=== PATIENT | female | born 1990 | race Caucasian/White ===

== ENCOUNTER 2023-06-05 07:48 | Outpatient (OUT) | payer BC, SELFPAY ==
--- NOTE | 2023-06-05 08:00 | NM_ITS ---
[address] [address] Patient Name: MIL BROOKS MRN: [id number] date: 1990 Sex: F Assigned Patient Location: [place] Current Patient Location: [place] Accession/Order Number: [id number] Exam Date: 06/05/2023 08:00 Report Date: 06/05/2023 14:48 At the request of: NON-STAFF PHYSICIAN Procedure: [place] gastric emptying study NUCLEAR MEDICINE GASTRIC EMPTYING SCAN HISTORY: Nausea and vomiting. COMPARISON: None. TECHNIQUE: The patient ingested a meal of egg labeled with 1.0 mCi of technetium-99 sulfur colloid and images were performed of the stomach over 4 hours. Gastric retention was calculated. FINDINGS: There is normal clearance of activity from the stomach into the small bowel. At one hour, there was 83% gastric retention. The normal range is 30% to 90%. At two hours, there was 23% gastric retention. The normal range 0% to 60%. At four hours, there was 1% gastric retention. The normal range 0% to 10%. [place] gastric emptying study IMPRESSION: Normal gastric emptying. Electronically authenticated by: RAGHU CARROLL Date: 06/05/2023 14:48
== END 2023-06-05 07:49 | disposition home or self-care (01) ==
LOC: NM 07:54
DX: K30 Functional dyspepsia (principal)
CPT/HCPCS: 78264; A9541